=== PATIENT | female | born 1975 | race Caucasian/White ===

== ENCOUNTER 2018-05-04 21:21 | Emergency (ER) | payer SELFPAY ==
[~2018-05-04] VITALS: Ht 157.5 cm; Wt 67.3 kg
[2018-05-04 21:30] VITALS: BP 177/97; PULSE 98; RESP 16; TEMP 98.6; O2SAT 97
[2018-05-04] MEDS ORDERED: ERYTOIN10 RIGHT EYE (21:52)
--- NOTE | 2018-05-04 21:52 | PD ---
HPI Chief Complaint: Eye Problems/Injury Time Seen by Provider: 21:44 Travel History International Travel<30 days: No Contact w/Intl Traveler<30days: No Traveled to known affect area: No History of Present Illness HPI 43-year-old female presents to the emergency department by private transportation for complaint of right eye irritation. Patient has had symptoms 1 days. Patient wears monovision contact lens to the right eye and changes the contact lens approximately every 2 weeks. Patient is visiting from out of town. Patient states she has not noticed any purulent drainage. Patient noted irritation to the eye this morning removed her contact lens irritation has persisted and has not resolved. Patient does not wear any other corrective lenses and denies any known foreign body exposure or direct injury to the eye. Patient states her left eye is unaffected. Patient states she frequently has irritation of the eyes as she has seasonal and environmental allergies. Patient bought [id number] eyedrops for allergy related eye irritation but symptoms have not improved so presents at this time for further evaluation. Patient takes prescription control pills but otherwise takes no regular medications denies tobacco use and only occasionally drinks alcohol. Patient is not diabetic. She does not know her tetanus status. Patient rates her eye pain 0/10 intensity. [facility] Past Medical History Narrative Medical Corrective lenses; no tobacco use; nursing notes reviewed Social History Tobacco Use: No Allergies-Medications (Allergen,Severity, Reaction): Coded Allergies: No Known Allergies (Unverified , 05/04/18) Narrative Medication BCP Review of Systems Except as stated in HPI: all other systems reviewed are Neg General / Constitutional: No: Fever, Chills Eyes: Positive: Redness, No: Blurred Vision HENT: No: Headaches, Congestion Skin: No Rash Neurologic: No: Weakness Hematologic/Lymphatic: No: Lymph Node Enlargement Physical Exam Narrative GENERAL: Well-developed well-nourished female no acute distress or respiratory distress SKIN: Warm and dry. HEAD: Normocephalic. EYES: No scleral icterus. Right eye injection and tearing non-purulent scant drainage; fluorescein uptake at the number 4 o'clock position, no ulceration identified. No foreign body identified. No gross hyphema. Pupils round reactive to light bilaterally extraocular muscles intact bilaterally no papilledema by funduscopic exam. Minimal upper and lower lid edema without erythema or induration. Nontender to palpation. NECK: Supple, trachea midline. No JVD or lymphadenopathy. CARDIOVASCULAR: Regular rate and rhythm without murmurs, gallops, or rubs. RESPIRATORY: Breath sounds equal bilaterally. No accessory muscle use. GASTROINTESTINAL: Abdomen soft, non-tender, nondistended. MUSCULOSKELETAL: No cyanosis, or edema. BACK: Nontender without obvious deformity. No CVA tenderness. Data Data Last Documented VS Vital Signs Date Time Temp Pulse Resp B/P (MAP) Pulse Ox O2 Delivery O2 Flow Rate FiO2 05/04/18 21:30 98.6 98 16 177/97 (123) 97 MDM Medical Decision Making Medical Screen Exam Complete: Yes Emergency Medical Condition: Yes Medical Record Reviewed: Yes Differential Diagnosis Conjunctivitis, retained foreign body, corneal abrasion, corneal ulceration, iritis Narrative Course Patient with small area of fluorescein uptake without obvious ulceration any affecting the right eye; tetanus status updated; patient given prescription for outpatient management; patient is stable for outpatient management to mold sprayer 1 day and patient instructed to not wear her contact lens or put anything other than saline drops in her eye or antibiotic ointment as prescribed Diagnosis Primary Impression: Corneal abrasion, right Qualified Codes: S05.01XA - Injury of conjunctiva and corneal abrasion without foreign body, right eye, initial encounter Referrals: Yanely Mulligan MD 1 day [employer] ophthamologist --call office in the AM Additional Instructions: Apply cool compresses to affected eye intermittently Do not place contact lens into the right eye until evaluated by mold sprayer Apply eye ointment to the eye as prescribed 4 times daily May use [id number] saline eyedrops/solution for irrigation and symptom relief as needed otherwise apply no other drops to the eye May take as needed acetaminophen and/or ibuprofen per package directions as needed for fever 100.4F or greater or for minor irritation/inflammation related pain Follow-up with mold sprayer 1 day; call office in a.m.; on-call mold sprayer Dr. Tayler Mulligan Return to the emergency department for any concerns or change in condition Med/Other Pt SpecificInfo: Prescription(s) given Scripts Erythromycin Opth Oint (Erythromycin Opth Oint) 5 Mg/Gm Oint 1 APPLIC RIGHT EYE QID for Infection, #1 TUBE 0 Refills Prov: Sirisha Bautista MD 05/04/18 Disposition: DISCHARGE HOME Condition: Stable Sirisha Bautista MD May 04, 2018 21:52
[2018-05-04] MEDS ORDERED: TETANUS/DIPHTHERIA TOXOID ADULT 0.5 ML VIAL IM ONE (22:00)
[2018-05-04] MEDS ORDERED: ERYTHROMYCIN 0.5% OPTH OINT 3.5 GM TUBO RIGHT EYE ONE (22:00)
== END 2018-05-04 22:06 | disposition home or self-care (01) ==
LOC: PHED 21:21
DX: S05.01XA Injury of conjunctiva and corneal abrasion without foreign body, right eye, initial encounter (principal); X58.XXXA Exposure to other specified factors, initial encounter; Z23 Encounter for immunization
CPT/HCPCS: 90471; 90714